=== PATIENT | female | born 1970 | race African-American/Black ===

== ENCOUNTER 2023-03-23 07:38 | Day surgery (SDC) | payer SELFPAY ==
[2023-03-17 15:51] VITALS: BMI 21.9
[2023-03-23] MEDS ORDERED: TETRACAINE 0.5% OPHTH SOLN 2 ML BOTTLE ONE (09:58)
[2023-03-23] MEDS ORDERED: BUPIVACAINE HCL/PF 0.5% (5MG/ML) 10 ML VIAL ONE (09:58)
[2023-03-23] MEDS ORDERED: POVIDONE-IODINE 5% OPHTHALMIC PREP 30 ML SOLUTION ONE (09:58)
[2023-03-23] MEDS ORDERED: ERYTHROMYCIN 0.5% OPHTHALMIC OINTMENT 3.5 GM TUBE ONE (09:58)
[2023-03-23] MEDS ORDERED: LIDOCAINE 1%-EPI 1:100,000 30 ML MDV IJ ONE (09:58)
[2023-03-23] MEDS ORDERED: ceFAZolin SODIUM 1 GM VIAL ONE ×2 (09:58→10:38)
[2023-03-23] MEDS ORDERED: MIDAZOLAM HCL 2 MG/2 ML SINGLE DOSE VIAL ONE (10:16)
[2023-03-23] MEDS ORDERED: PROPOFOL 20 ML ONE (10:16)
[2023-03-23] MEDS ORDERED: ONDANSETRON 4 MG/2 ML VIAL IVPUSH PRN (11:27)
[2023-03-23] MEDS ORDERED: oxyCODONE HCL 5 MG TABLET PO PRN (11:27)
[2023-03-23] MEDS ORDERED: LACTATED RINGERS SOLUTION 1,000 ML IV SCH (11:30)
[2023-03-23 12:04] VITALS: PULSE 53; RESP 18; TEMP 97.4
[2023-03-23 12:23] VITALS: BP 133/81
== END 2023-03-23 12:25 | disposition home or self-care (01) ==
LOC: FASU 07:38
PROVIDERS: ATTEND Ophthalmology
PROC: 080N0ZZ Alteration of Right Upper Eyelid, Open Approach (ICD-10-PCS; principal; 2023-03-23 10:49)
DX: H02.421 Myogenic ptosis of right eyelid (principal)
CPT/HCPCS: 81025; 94760